=== PATIENT | female | born 1965 | race Caucasian/White ===

== ENCOUNTER → 2018-11-04 11:52 | Outpatient (CLI) | payer OTHER, MEDICAID, SELFPAY ==
--- NOTE | 2018-11-04 | DI.MG.S_ITS ---
BILATERAL DIGITAL SCREENING MAMMOGRAM 3D/2D WITH CAD: 11/04/2018 CLINICAL: Routine screening. Comparison is made to exam dated: 08/11/2007 [facility]. There are scattered fibroglandular elements in both breasts. Current study was also evaluated with a Computer Aided Detection (CAD) system. No significant masses, calcifications, or other findings are seen in either breast. There has been no significant interval change. IMPRESSION: NEGATIVE There is no mammographic evidence of malignancy. A 1 year screening mammogram is recommended. This exam was interpreted at Station ID: [id number]. NOTE: For mammograms, a report in lay terms will be sent to the patient. Approximately 15% of breast malignancies will not be visualized mammographically. In the management of a palpable breast mass, a negative mammogram must not discourage biopsy of a clinically suspicious lesion. Electronically Signed By: Marquita ma/thai:11/04/2018 13:43:37 letter sent: Normal Exam ACR BI-RADS Category 1: Negative 3341F
== END ==
PROVIDERS: Family Provider Family Medicine; PCP Family Medicine; Visit Provider Family Medicine
DX: Z13.21 Encounter for screening for nutritional disorder (principal)
CPT/HCPCS: 77063; 77067

== ENCOUNTER 2020-02-29 10:29 | Emergency (ER) | payer OTHER, MEDICAID, SELFPAY ==
[2020-02-29 10:30] VITALS: BP 124/74; PULSE 117; RESP 14; TEMP 37.1; O2SAT 99; BMI 25.7
--- NOTE | 2020-02-29 10:35 | ED_ITS ---
HPI - Headache General Chief Complaint: Headache Stated Complaint: 8 day migrane Time Seen by Provider: 02/29/20 10:34 Source: patient Mode of arrival: Ambulatory Limitations: no limitations History of Present Illness HPI Narrative: This is a 55-year-old female comes to the emergency department with complaint of a days of migraine. Patient states that she has chronic migraines for the past 27 years. She does have a neurologist in [place], she states she cannot recall her name at this time but follows with her regularly. She has been on multiple medications. She currently takes his Abilify, sertraline, an amphetamine, Valium and uses a fentanyl patch for her anxiety, depression, narcolepsy and chronic migraines. Patient states that her migraine is it is typical intensity and pattern other than an extended length. She typically does not have migraines last for 8 days. She did go to the clinic on [facility] where she lives and received Toradol 2 days prior and Solu-Medrol yesterday without improvement. She has tried Imitrex at home, THC and OTC pain meds without improvement. She states that she will often received Demerol through the clinic which is typically helpful but they were out. Patient denies any fevers, no vision changes, no difficulty with ambulation, no new numbness, tingling or weakness, no syncope. She has had nausea, photophobia and is sensitive to sound. She had some vomiting yesterday but none today. She denies any other GI or urinary symptoms. She has tried multiple medications in the past including daily anti migraine medications but these were stopped secondary to side effects and she had benefit from Botox but this was stopped secondary to insurance coverage. Patient was following with pain management until April. Related Data Home Medications Medication Instructions Recorded Confirmed amphetamines 40 mg PO DAILY 11/04/18 11/04/18 aripiprazole 20 mg tablet 20 mg PO DAILY 11/04/18 11/04/18 zrlbtfn-beshwxomfrxdp-ovpmjamu 250 1 tab PO DAILY PRN tab 11/04/18 11/04/18 mg-250 mg-65 mg tablet cetirizine PO DAILY PRN 11/04/18 11/04/18 cholecalciferol (vitamin D3) PO DAILY 11/04/18 11/04/18 diazepam 2 each PO DAILY 11/04/18 11/04/18 fentanyl 50 mcg/hr transdermal 1 patch TRANSDERMAL Q72H 11/04/18 11/04/18 patch gabapentin 3 each PO BEDTIME 11/04/18 11/04/18 hydromorphone 8 mg tablet 8 mg PO DAILY PRN tab 11/04/18 11/04/18 magnesium PO DAILY 11/04/18 11/04/18 propranolol 20 mg tablet 20 mg PO BID 11/04/18 11/04/18 sertraline 100 mg tablet 100 mg PO DAILY 11/04/18 11/04/18 Previous Rx's Medication Instructions Recorded galcanezumab-gnlm 120 mg/mL 120 mg SUBCUT QMONTH #1 ml 01/09/19 subcutaneous pen injector galcanezumab-gnlm 120 mg/mL 240 mg SUBCUT ONCE #2 ml 01/09/19 subcutaneous pen injector sumatriptan succinate 100 mg tablet See Rx Instructions PO .COMPLEX 03/23/19 #14 tab galcanezumab-gnlm 120 mg/mL 120 mg SUBCUT QMONTH #1 ml 05/11/19 subcutaneous pen injector sumatriptan succinate 100 mg tablet See Rx Instructions PO .COMPLEX 05/11/19 #10 tab Allergies Allergy/AdvReac Type Severity Reaction Status Date / Time Sulfa (Sulfonamide Allergy Intermediate HIVES Verified 02/29/20 10:36 Antibiotics) [SULFA (SULFONAMIDE ANTIBIOTICS)] erythromycin base Allergy Mild HIVES Verified 02/29/20 10:36 [ERYTHROMYCIN BASE] fentanyl [FENTANYL] Allergy Mild HIVES Verified 02/29/20 10:36 Review of Systems Review of Systems ROS Unobtainable: All systems reviewed & are unremarkable except as noted in HPI and below Patient History Social History (Updated 02/29/20 @ 11:12 by Tavia Marrero DO) Smoking Status: Former smoker alcohol intake: current substance use type: marijuana Smoking Status: Former smoker Exam Narrative Exam Narrative: GEN: well nourished, well appearing female, alert and oriented x 3, patient appears to be in mild distress. HEENT: Atraumatic, pupils are equal round reactive to light, mild photophobia, no nystagmus, extraocular movements are intact, nares are clear, TMs are clear with no fluid, there is no conjunctival pallor. Throat is clear without any exudates, erythema, tonsillar enlargement or uvular deviation, no facial droop HEART: Regular rate and rhythm without murmur, clicks, rubs. LUNGS:Lungs clear to auscultation, no wheezes, rales, crackles, chest moves symmetrically ABD:bowel sounds normal, soft, non-tender, no guarding, rebound, rigidity, no masses noted, no hepatosplenomegaly MSCL: Non-tender, no muscle atrophy, muscles strength 5/5 upper and lower extremities, full range of motion, normal gait NEURO:CN 2-12 intact, sensation normal, reflexes 2/4 lower extremities. Hjqgos-ehhg-sxwpvk and heel-gallego normal bilaterally SKIN: No rashes, erythema or skin changes noted. Initial Vital Signs Initial Vital Signs: Vital Signs Temperature 98.8 F 02/29/20 10:30 Pulse Rate 117 H 02/29/20 10:30 Respiratory Rate 14 02/29/20 10:30 Blood Pressure 124/74 02/29/20 10:30 Pulse Oximetry 99 02/29/20 10:30 Scores GCS [place] coma scale eye opening: Spontaneous [place] coma scale verbal response: Orientated [place] coma scale motor response: Obey commands [place] coma scale total score: 15 Course Orders Ordered: Discontinued Medications Diphenhydramine HCl (Diphenhydramine 50 Mg/Ml Vial) 25 mg IV NOW ONE Stop: 02/29/20 10:53 Last Admin: 02/29/20 11:16 Dose: 25 mg Documented by: ESTUARDO Hydromorphone HCl (Hydromorphone 1 Mg Inj) 1 mg IV NOW ONE Stop: 02/29/20 12:01 Last Admin: 02/29/20 12:07 Dose: 1 mg Documented by: ESTUARDO Hydromorphone HCl (Hydromorphone 4 Mg Tablet) 4 mg PO NOW ONE Stop: 02/29/20 14:16 Last Admin: 02/29/20 14:36 Dose: 4 mg Documented by: KBROTEM Sodium Chloride (Normal Saline 0.9%) 1,000 mls @ 1,000 mls/hr IV BOLUS ONE Stop: 02/29/20 11:51 Last Infusion: 02/29/20 12:20 Dose: 0 mls/hr Documented by: Admin: 02/29/20 11:15 Dose: 1,000 mls/hr Documented by: ESTUARDO Ketorolac Tromethamine (Ketorolac 60 Mg/2 Ml Vial) 15 mg IV NOW ONE Stop: 02/29/20 10:53 Last Admin: 02/29/20 11:16 Dose: 15 mg Documented by: ESTUARDO Metoclopramide HCl (Metoclopramide 10 Mg/2 Ml Inj) 10 mg IV NOW ONE Stop: 02/29/20 10:53 Last Admin: 02/29/20 11:16 Dose: 10 mg Documented by: ESTUARDO Reevaluation(s) Reevaluation #1: Patient states no improvement of symptoms with IV fluids, toradol, reglan and benadryl. Time: 11:54 Reevaluation #2: Recheck patient states headache is now 6/10 from 10/22 for nursing. Patient has fentanyl patch on. Filled diluadid tablets #4 on 02/25. Patient states she had resolution of symptoms but now returning. She has taken oral diluadid regularly. Will give 4mg po here and she can continue home medications. Encouraged to reach out to her neurologist. Her next appointment is in May. Time: 14:17 Vital Signs Vital signs: Vital Signs - 8 hr 02/29/20 13:15 02/29/20 14:44 Pulse Rate 95 H 100 H Respiratory Rate 16 Blood Pressure 109/59 L 101/65 Pulse Oximetry 95 97 MDM - Headache MDM Narrative Medical decision making narrative: Patient has typical migraine pattern in terms of intensity, location and symptoms the only change is extended course. She has had appropriate workup in the past, follows regularly with Neurology and has attempted outpatient treatment nlzw-wyx-owkiuwt with her home medications [place] Patient had moderate improvement in pain but is now sitting up and on phone and appears much more comfortable than prior. Patient comfortable to return home. Discharge Plan Departure Patient Disposition: Home Clinical Impression: Migraine Instructions: DI for Migraine Activity Restrictions/Additional Instructions: Follow up with your neurologist if you continue to have prolonged symptoms. They may have some additional options for manager long term care medications. Continue your home medications as prescribed. Return for fevers, passing out, new chest pain or shortness of breath, persistent vomiting, new weakness numbness or difficulty using your extremities, ambulating, sudden severe or new changes that are atypical of your migraines or other new or concerning symptoms. Prescriptions: No Action sumatriptan succinate 100 mg tablet See Rx Instructions PO .COMPLEX Qty: 14 RF: 2 propranolol 20 mg tablet 20 mg PO BID RF: 0 aripiprazole [Abilify] 20 mg tablet 20 mg PO DAILY RF: 0 sertraline 100 mg tablet 100 mg PO DAILY RF: 0 amphetamines 40 mg PO DAILY RF: 0 diazepam 2 each PO DAILY RF: 0 gabapentin 3 each PO BEDTIME RF: 0 fentanyl 50 mcg/hr patch 72 hour 1 patch transdermal Q72H RF: 0 hydromorphone [Dilaudid] 8 mg tablet 8 mg PO DAILY PRNRF: 0 magnesium PO DAILY RF: 0 cholecalciferol (vitamin D3) PO DAILY RF: 0 cetirizine PO DAILY PRNRF: 0 Excedrin Migraine 250-250-65 mg tablet 1 tab PO DAILY PRNRF: 0 Emgality Pen 120 mg/mL pen injector 240 mg SUBCUT ONCE Qty: 2 RF: 0 Emgality Pen 120 mg/mL pen injector 120 mg SUBCUT QMONTH Qty: 1 RF: 12 sumatriptan succinate 100 mg tablet See Rx Instructions PO .COMPLEX Qty: 10 RF: 5 Emgality Pen 120 mg/mL pen injector 120 mg SUBCUT QMONTH Qty: 1 RF: 5 Referrals: Domingo Conley MD [Primary Care Provider] -
[2020-02-29] MEDS: SODIUM CHLORIDE 0.9% 1,000 ML 1000 ML IV (11:15)
[2020-02-29] MEDS: diphenhydrAMINE 50 MG/ML VIAL 25 MG IV (11:16)
[2020-02-29] MEDS: KETOROLAC 60 MG/2 ML VIAL 15 MG IV (11:16)
[2020-02-29] MEDS: METOCLOPRAMIDE 10 MG/2 ML INJ IV (11:16)
[2020-02-29] MEDS: HYDROMORPHONE 1 MG INJ IV (12:07)
[2020-02-29 13:15] VITALS: BP 109/59; PULSE 95; RESP 16; O2SAT 95
[2020-02-29] MEDS: HYDROMORPHONE 4 MG TABLET PO (14:36)
[2020-02-29 14:44] VITALS: BP 101/65; PULSE 100; O2SAT 97
== END 2020-02-29 14:45 | disposition home or self-care (01) ==
PROVIDERS: Emergency Provider Emergency Medicine; Family Provider Family Medicine; PCP Family Medicine
DX: G43.909 Migraine, unspecified, not intractable, without status migrainosus (principal)
CPT/HCPCS: 96361; 96374; 96375; 99281; 99284; J1170; J1200; J1885; J2765

== ENCOUNTER → 2020-08-27 11:07 | Outpatient (CLI) | payer OTHER, MEDICAID, SELFPAY ==
--- NOTE | 2020-08-27 11:09 | DI.MRI.S_ITS ---
PROCEDURE: MR LUMBAR SPINE WO CON INDICATIONS: Non-resolving lumbago s/p PT and x-rays. TECHNIQUE: Noncontrast sagittal T1 spin echo and T2 fast echo, sagittal STIR, axial T1 and T2 fast spin echo through the lumbar spine. In cases with scoliosis, additional coronal T2 fast spin echo may be performed. COMPARISON: [facility], MR, L-SPINE WITHOUT CONTRAST, 06/12/2013, 10:53. [facility] ([facility]), CR, XR LUMBAR SPINE 2-3V, 07/22/2020, 15:00. FINDINGS: Image quality: Excellent. Alignment and Curvature: Mild dextroconvex scoliotic curvature is seen. Bone Marrow: Marrow is of normal overall signal. No acute vertebral body compression fractures. Spinal Cord: Conus medullaris terminates at the L1 level. Visualized cord demonstrates normal signal and size. Paraspinous Soft Tissues: No paravertebral masses. T12-L1: Normal appearance. L1-L2: Normal appearance. L2-L3: The disc height and disk signal are well-preserved. Mild disc bulge is seen, which is eccentric to the right. Mild to moderate facet hypertrophy is seen. No significant neural foraminal narrowing is seen. Mild central canal narrowing is seen. These imaging findings have progressed compared to the prior study. L3-L4: Chir-bk-gduryiyl loss of disc height and disc signal can be seen at this level. Moderate disc bulge is seen, which is eccentric to the right. Mild to moderate facet hypertrophy is seen. There is mild left-sided and moderate right-sided neural foraminal narrowing seen. Moderate central canal narrowing is seen. These imaging findings have progressed compared to the prior study. L4-L5: Gwyv-mq-hbaxjocm loss of disc height and disc signal can be seen. Moderate disc bulge is seen, with a central disc protrusion. At least moderate facet hypertrophy is seen. Moderate bilateral neural foraminal narrowing is seen. Moderate central canal narrowing is seen. These imaging findings have progressed compared to 2014. L5-S1: The disc height and disc signal are relatively well preserved. Moderate generalized disc bulge is seen. At least moderate facet hypertrophy is seen. There is at least moderate bilateral neural foraminal narrowing seen, left worse than right. There is a mild degree of compression seen upon the exiting L5 nerve roots, left worse than right. Mild central canal narrowing is seen. These imaging findings have progressed compared to the prior study. IMPRESSION: Multiple levels of lumbar spine degenerative change are seen, which have progressed compared to 2014. Dictated by: Marques Ramos M.D. on 08/27/2020 at 11:43 Approved by: Marques Ramos M.D. on 08/27/2020 at 11:47
== END ==
PROVIDERS: Family Provider Family Medicine; PCP Family Medicine; Referring Provider Family Medicine; Visit Provider Family Medicine
DX: M54.41 Lumbago with sciatica, right side (principal); M47.816 Spondylosis without myelopathy or radiculopathy, lumbar region; M41.86 Other forms of scoliosis, lumbar region; G89.4 Chronic pain syndrome
CPT/HCPCS: 72148

== ENCOUNTER → 2021-01-03 09:21 | Outpatient (CLI) | payer OTHER, MEDICAID, SELFPAY ==
[2021-01-03 18:52] LABS: Alanine Aminotransferase 20 IU/L (<35); Albumin 4.5 g/dL (3.5-5.0); Alkaline Phosphatase 96 U/L (38-126); Aspartate Aminotransferase 23 IU/L (14-36); BUN Creatinine Ratio 14.7 (6-22); Bilirubin Total 0.7 mg/dL (0.2-1.3); Blood Urea Nitrogen 11 mg/dL (7-17); Calcium 9.6 mg/dL (8.4-10.2); Carbon Dioxide 29 mmol/L (22-32); Chloride 104 mmol/L (98-107); Cholesterol 235 mg/dL (140-199); Estimated Glomerular Filt Rate > 60.0 mL/min (>60); Globulin 2.3 g/dL (1.7-4.1); Glucose 97 mg/dL (70-100); HDL Cholesterol 56 mg/dL (40-60); HEMOLYSIS < 15 (0-50); LDL Cholesterol Calculated 163 mg/dL (<100); Potassium 4.1 mmol/L (3.4-5.1); Sodium 142 mmol/L (137-145); Total Protein 6.8 g/dL (6.3-8.2); Triglycerides 81 mg/dL (35-150)
== END ==
PROVIDERS: Family Provider Family Medicine; PCP Family Medicine; Visit Provider Family Medicine
DX: E78.5 Hyperlipidemia, unspecified (principal)
CPT/HCPCS: 80053; 80061

== ENCOUNTER → 2021-02-05 11:34 | Outpatient (CLI) | payer OTHER, MEDICAID, SELFPAY ==
--- NOTE | 2021-02-05 11:36 | DI.MG.S_ITS ---
BILATERAL DIGITAL SCREENING MAMMOGRAM 3D/2D WITH CAD: 02/05/2021 CLINICAL: Routine screening. Comparison is made to exams dated: 11/04/2018 mammogram and 08/11/2007 mammogram - [facility]. There are scattered fibroglandular elements in both breasts. Current study was also evaluated with a Computer Aided Detection (CAD) system. No significant masses, calcifications, or other findings are seen in either breast. There has been no significant interval change. IMPRESSION: NEGATIVE There is no mammographic evidence of malignancy. A 1 year screening mammogram is recommended. This exam was interpreted at Station ID: [id number]. NOTE: For mammograms, a report in lay terms will be sent to the patient. Approximately 15% of breast malignancies will not be visualized mammographically. In the management of a palpable breast mass, a negative mammogram must not discourage biopsy of a clinically suspicious lesion. Electronically Signed By: Hiro Zapata M.D., jr/thai:02/05/2021 13:06:41 letter sent: Normal Exam ACR BI-RADS Category 1: Negative 3341F
== END ==
PROVIDERS: Family Provider Family Medicine; PCP Family Medicine; Referring Provider Family Medicine; Visit Provider Family Medicine
DX: Z12.31 Encounter for screening mammogram for malignant neoplasm of breast (principal)
CPT/HCPCS: 77063; 77067

== ENCOUNTER → 2021-05-22 08:01 | Outpatient (CLI) | payer OTHER, MEDICAID, SELFPAY ==
[2021-05-22 19:01] LABS: Add Manual Diff / Slide Review NO; Basophils Absolute Auto 0 /uL (0-100); Basophils Percent Auto 0.7 % (0-2); Eosinophils Absolute Auto 200 /uL (0-450); Hematocrit 41.9 % (36-46); Hemoglobin 14.1 g/dL (12.0-16.0); Lymphocytes Absolute Auto 3000 /uL (1100-4500); Lymphocytes Percent Auto 48.6 % (25-40); Mean Corpuscular HGB Conc 33.6 % (30-36); Mean Corpuscular Hemoglobin 31.3 PG (26-34); Mean Corpuscular Volume 93.3 fL (80-100); Monocytes Absolute Auto 300 /uL (0-900); Monocytes Percent Auto 4.4 % (3-14); Neutrophils Absolute Auto 2700 /uL (1500-7000); Neutrophils Percent Auto 43.3 % (50-75); Platelet Count 171 X10^3/uL (150-400); Red Blood Cell Count 4.49 X10^6/uL (4.0-5.2); Red Cell Distribution Width 13.3 % (11.6-14.8); White Blood Cell Count 6.2 X10^3/uL (4.5-11.0)
[2021-05-22 19:07] LABS: Alanine Aminotransferase 29 IU/L (<35); Albumin Globulin Ratio 1.8 (1.0-2.8); Alkaline Phosphatase 85 U/L (38-126); Aspartate Aminotransferase 29 IU/L (14-36); Bilirubin Total 0.7 mg/dL (0.2-1.3); Blood Urea Nitrogen 15 mg/dL (7-17); Calcium 9.2 mg/dL (8.4-10.2); Carbon Dioxide 34 mmol/L (22-32); Chloride 104 mmol/L (98-107); Cholesterol 138 mg/dL (140-199); Estimated Glomerular Filt Rate > 60.0 mL/min (>60); Globulin 2.2 g/dL (1.7-4.1); Glucose 93 mg/dL (70-100); HDL Cholesterol 44 mg/dL (40-60); HEMOLYSIS < 15 (0-50); LDL Cholesterol Calculated 74 mg/dL (<100); Potassium 4.3 mmol/L (3.4-5.1); Sodium 140 mmol/L (137-145); Total Protein 6.2 g/dL (6.3-8.2); Triglycerides 101 mg/dL (35-150)
== END ==
PROVIDERS: Family Provider Family Medicine; PCP Family Medicine; Visit Provider Family Medicine
DX: Z00.00 Encounter for general adult medical examination without abnormal findings (principal); F31.32 Bipolar disorder, current episode depressed, moderate; E78.2 Mixed hyperlipidemia
CPT/HCPCS: 80053; 80061; 85025

== ENCOUNTER → 2021-07-01 08:18 | Outpatient (CLI) | payer OTHER, MEDICAID, SELFPAY ==
[2021-07-01 19:49] LABS: COVID19 - ORCAS (NP or Nasal) Negative (Negative)
== END ==
PROVIDERS: Family Provider Family Medicine; PCP Family Medicine; Visit Provider Physician Assistant
DX: Z01.812 Encounter for preprocedural laboratory examination (principal); Z20.822 Contact with and (suspected) exposure to COVID-19
CPT/HCPCS: C9803; U0003

== ENCOUNTER 2021-07-03 10:40 | Outpatient (CLI) | payer OTHER, MEDICAID, SELFPAY ==
[2021-07-03] VITALS (9 sets, daily range): BP systolic 118–129; BP diastolic 68–82; PULSE 90–106; RESP 10–20; TEMP 37; O2SAT 94–99
--- NOTE | 2021-07-03 10:42 | DI.RAD.S_ITS ---
PROCEDURE: PAIN L/SI FACET INJ/BLK 1STL INDICATIONS: SPONDYLOSIS COMPARISON: [facility], MR, MR LUMBAR SPINE WO CON, 08/27/2020, 11:18. FINDINGS: Fluoroscopic spot filming was performed to verify placement of spinal needles on the right at the L4, L5, and S1 levels, as labeled on the films. Appropriate location of the needle tips was confirmed by injection of iodinated contrast. IMPRESSION: Intraprocedural examination demonstrating appropriate positions of the needles. Dictated by: Marques Ramos M.D. on 07/03/2021 at 12:00 Approved by: Marques Ramos M.D. on 07/03/2021 at 12:01
[2021-07-03] MEDS: ONDANSETRON 4 MG/2 ML INJ IV (11:21)
[2021-07-03] MEDS: MIDAZOLAM 2 MG/2 ML VIAL IV (11:54)
[2021-07-03] MEDS: fentaNYL 100 MCG/2 ML INJ (12:00)
[2021-07-03] MEDS: IOPAMIDOL 15 ML VIAL 3 ML INJ (12:03)
[2021-07-03] MEDS: BUPIVACAINE 0.5% (PF) VIAL 5 ML INJ (12:03)
[2021-07-03] MEDS: LIDOCAINE 1% 20 ML 5 ML INJ (12:04)
--- NOTE | 2021-07-03 12:10 | PM.PROC.IR.1 ---
Date/Time/Diagnoses Date of procedure: 07/03/21 Time of procedure: 12:10 Pre-procedure diagnosis: 1. FACET ARTHROPATHY Post-procedure diagnosis: same Procedure Notes Procedure: 1. Right L4, L5 and S1 MB BLOCKS LA Indications: Agustina is referred by Dr. Aguila for treatment of Right Axial LBP. Physician: Sky Carney Total Fluoroscopy time (seconds): 6 Total sedation minutes: 10 Complications: none Procedure in detail & Post-procedure care: DESCRIPTION OF PROCEDURE Fluoroscopically guided, contrast-controlled right L4, L5 and S1 medial branch blocks with 0.5cc of 0.5% Marcaine. Following review of allergy and review of potential side effects and complications, including, but not necessarily limited to, infection, allergic reaction, local tissue breakdown, nerve injury, paralysis, stroke and possible , the patient indicated that the patient understood and agreed to proceed. An informed consent document was signed by the patient, witnessed by a nurse, and placed in the patient's chart. After review of previous anaesthesic history and IV conscious sedation the patient was deemed safe to proceed with today?s procedure with IV conscious sedation as ASA class II designation. Safety time-out was performed to confirm patient ID, procedure to be performed and site of procedure. IV sedation was accomplished with a combination of 2mg of Versed and 100mcg of Fentanyl was administered by the RN after DO order, titrated to patient comfort during the course of the procedure while the patient remained responsive to all verbal commands In the prone position, following sterile prep and drape of the lumbar region, the right L4, L5 and S1 anatomical location of the medial branch of the dorsal ramus was identified fluoroscopically. Subsequently an anesthetic skin wheal using 1% lidocaine solution was initiated at each of the anatomical spots. Subsequently then a 22-gauge 3.5-inch spinal needle was atraumatically introduced and advanced under fluoroscopic guidance at each of the corresponding sites at the right L4, L5 and S1 MB. After negative aspiration, 0.2 cc of Isovue 200 was injected, confirming placement without vascular or intrathecal uptake. Subsequently then 0.5 cc of 0.5% Marcaine solution was injected at each of the corresponding sites at the right L4, L5 and S1 medial branch locations. The patient tolerated the procedure well without signs or symptoms of complications. The procedure tolerated the procedure well without signs or symptoms of complications prior to transfer to the recovery area continued monitoring without incident. Post-procedure, the patient was monitored initiating provocative activities to measure the amount of relief from block of the facetogenic pain. The patient reported a VAS of 7 prior to the procedure and a post-procedure VAS of 1. It has been a pleasure to assist in the diagnostic and therapeutic care of your patient. POST OP INSTRUCTIONS The patient was provided with a Pain Log to complete over the next several hours and subsequent days prior to the patient's follow up with the ordering physician. If the patient has k 9 police officer relief to the solution applied, then they may be a candidate for medial branch rhizotomy. The patient is aware, was provided, once again, with a Pain Log and will follow up with the referring physician for review and clinical correlation.
== END 2021-07-03 12:32 | disposition home or self-care (01) ==
PROVIDERS: Family Provider Family Medicine; PCP Family Medicine; Referring Provider Physical Medicine & Rehabilitation; Visit Provider Physical Medicine & Rehabilitation
DX: M47.816 Spondylosis without myelopathy or radiculopathy, lumbar region (principal); M47.817 Spondylosis without myelopathy or radiculopathy, lumbosacral region
CPT/HCPCS: 64493; 64494; 99152; J2250; J2405; J3010

== ENCOUNTER → 2021-10-27 10:45 | Outpatient (CLI) | payer OTHER, MEDICAID, SELFPAY ==
[2021-10-27 21:00] LABS: Add Manual Diff / Slide Review NO; Basophils Absolute Auto 0 /uL (0-100); Basophils Percent Auto 0.7 % (0-2); Eosinophils Absolute Auto 100 /uL (0-450); Eosinophils Percent Auto 2.2 % (2-4); Hematocrit 44.2 % (36-46); Hemoglobin 14.6 g/dL (12.0-16.0); Lymphocytes Absolute Auto 2300 /uL (1100-4500); Mean Corpuscular HGB Conc 33.1 % (30-36); Mean Corpuscular Volume 93.7 fL (80-100); Monocytes Absolute Auto 300 /uL (0-900); Monocytes Percent Auto 4.8 % (3-14); Neutrophils Absolute Auto 3700 /uL (1500-7000); Neutrophils Percent Auto 57.3 % (50-75); Platelet Count 179 X10^3/uL (150-400); Red Blood Cell Count 4.72 X10^6/uL (4.0-5.2); Red Cell Distribution Width 13.3 % (11.6-14.8); White Blood Cell Count 6.4 X10^3/uL (4.5-11.0)
[2021-10-27 21:18] LABS: Alanine Aminotransferase 39 IU/L (<35); Albumin 4.3 g/dL (3.5-5.0); Albumin Globulin Ratio 1.9 (1.0-2.8); Alkaline Phosphatase 113 U/L (38-126); Aspartate Aminotransferase 27 IU/L (14-36); BUN Creatinine Ratio 18.2 (6-22); Bilirubin Total 0.7 mg/dL (0.2-1.3); Blood Urea Nitrogen 12 mg/dL (7-17); Calcium 8.9 mg/dL (8.4-10.2); Carbon Dioxide 25 mmol/L (22-32); Chloride 106 mmol/L (98-107); Cholesterol 158 mg/dL (140-199); Estimated Glomerular Filt Rate > 60 mL/min (>60); Globulin 2.3 g/dL (1.7-4.1); Glucose 98 mg/dL (70-100); HDL Cholesterol 54 mg/dL (40-60); HEMOLYSIS 15 (0-50); LDL Cholesterol Calculated 88 mg/dL (<100); Potassium 4.3 mmol/L (3.4-5.1); Sodium 141 mmol/L (137-145); Total Protein 6.6 g/dL (6.3-8.2); Triglycerides 78 mg/dL (35-150)
== END ==
PROVIDERS: Family Provider Family Medicine; PCP Family Medicine; Visit Provider Family Medicine
DX: R51.9 Headache, unspecified (principal); E78.2 Mixed hyperlipidemia
CPT/HCPCS: 80053; 80061; 85025

== ENCOUNTER → 2021-11-04 09:23 | Outpatient (CLI) | payer OTHER, MEDICAID, SELFPAY ==
[2021-11-04 20:16] LABS: TSH w/ Reflex to FT4 1.05 uIU/mL (0.47-4.68)
== END ==
PROVIDERS: Family Provider Family Medicine; PCP Family Medicine; Visit Provider Family Medicine
DX: F31.9 Bipolar disorder, unspecified (principal); G43.709 Chronic migraine without aura, not intractable, without status migrainosus; R53.83 Other fatigue
CPT/HCPCS: 84443

== ENCOUNTER → 2021-11-10 09:38 | Outpatient (CLI) | payer OTHER, MEDICAID, SELFPAY ==
[2021-11-10 20:39] LABS: COVID19 - ORCAS (NP or Nasal) Negative (Negative)
== END ==
PROVIDERS: Family Provider Family Medicine; PCP Family Medicine; Visit Provider Family Medicine
DX: Z20.822 Contact with and (suspected) exposure to COVID-19 (principal); Z01.812 Encounter for preprocedural laboratory examination
CPT/HCPCS: C9803; U0003

== ENCOUNTER 2021-11-11 09:22 | Outpatient (CLI) | payer OTHER, MEDICAID, SELFPAY ==
[2021-11-11] VITALS (11 sets, daily range): BP systolic 125–148; BP diastolic 65–86; PULSE 93–103; RESP 12–20; TEMP 36.2; O2SAT 96–99
--- NOTE | 2021-11-11 09:25 | DI.RAD.S_ITS ---
PROCEDURE: PAIN L/S FACET INJ/BLK 1ST GRACE COMPARISON: [facility], , PAIN L/SI FACET INJ/BLK 1STL, 07/03/2021, 11:59. INDICATIONS: SPONDYLOSIS FINDINGS: Fluoroscopic spot filming was performed to verify placement of spinal needles on both sides at the L4, L5, and S1 levels, as labeled on the films. Appropriate location of the needle tips was confirmed by injection of iodinated contrast. IMPRESSION: Intraprocedural examination demonstrating appropriate positions of the needles. Dictated by: Marques Ramos M.D. on 11/11/2021 at 12:20 Approved by: Marques Ramos M.D. on 11/11/2021 at 12:21
[2021-11-11] MEDS: LIDOCAINE 1% (PF) 5 ML INJ (10:15)
[2021-11-11] MEDS: IOPAMIDOL 15 ML VIAL 3 ML INJ (10:16)
[2021-11-11] MEDS: BUPIVACAINE 0.5% (PF) VIAL 5 ML SUBCUT (10:16)
[2021-11-11] MEDS: MIDAZOLAM 5 MG/5 ML VIAL IV (10:21)
--- NOTE | 2021-11-11 10:30 | P.PCN_ITS ---
Date/Time/Diagnoses Date of procedure: 11/11/21 Time of procedure: 10:30 Pre-procedure diagnosis: 1. FACET ARTHROPATHY Post-procedure diagnosis: same Procedure Notes Procedure: 1. BILATERAL- L4, L5 and S1 DIAGNOSTIC MB BLOCKS with SA Anesthetic Indications: Agustina is referred by Dr. Aguila for treatment of Bilateral Axial LBP. Physician: Sky Carney Total Fluoroscopy time (seconds): 12 Total sedation minutes: 14 Complications: none Procedure in detail & Post-procedure care: DESCRIPTION OF PROCEDURE Fluoroscopically guided, contrast-controlled bilateral L4, L5 and S1 medial branch blocks with 0.5cc of 2% Lidocaine. Following review of allergy and review of potential side effects and complications, including, but not necessarily limited to, infection, allergic reaction, local tissue breakdown, nerve injury, paralysis, stroke and possible , the patient indicated that the patient understood and agreed to proceed. An informed consent document was signed by the patient, witnessed by a nurse, and placed in the patient's chart. After review of previous anaesthesic history and IV conscious sedation the patient was deemed safe to proceed with today's procedure with IV conscious chris tion as ASA class II designation. Safety time-out was performed to confirm patient ID, procedure to be performed and site of procedure. IV sedation was accomplished with a combination of 5mg of Versed was administered by the RN after DO order, titrated to patient comfort during the course of the procedure while the patient remained responsive to all verbal commands In the prone position, following sterile prep and drape of the lumbar region, the right L4, L5 and S1 anatomical location of the medial branch of the dorsal ramus was identified fluoroscopically. Subsequently an anesthetic skin wheal using 1% lidocaine solution was initiated at each of the anatomical spots. Subsequently then a 22-gauge 3.5-inch spinal needle was atraumatically introduced and advanced under fluoroscopic guidance at each of the corresponding sites at the right L4, L5 and S1 MB. After negative aspiration, 0.2cc of Isovue 200 was injected, confirming placement without vascular or intrathecal uptake. Subsequently then 0.5cc of 2% Lidocaine solution was injected at each of the corresponding sites at the right L4, L5 and S1 medial branch locations. The identical procedure was replicated on the left. The patient tolerated the procedure well without signs or symptoms of complications prior to transfer to the recovery area continued monitoring without incident. Post-procedure, the patient was monitored initiating provocative activities to measure the amount of relief from block of the facetogenic pain. The patient reported a VAS of 7 prior to the procedure and a post-procedure VAS of 1. It has been a pleasure to assist in the diagnostic and therapeutic care of your patient. POST OP INSTRUCTIONS The patient was provided with a Pain Log to complete over the next several hours and subsequent days prior to the patient's follow up with the ordering physician. If the patient has plaster whittler relief to the solution applied, then they may be a candidate for medial branch rhizotomy. The patient is aware, was provided, once again, with a Pain Log and will follow up with the referring physician for review and clinical correlation
== END 2021-11-11 10:55 | disposition home or self-care (01) ==
LOC: RAD 09:24
PROVIDERS: Family Provider Family Medicine; PCP Family Medicine; Referring Provider Physical Medicine & Rehabilitation; Visit Provider Physical Medicine & Rehabilitation
DX: M47.816 Spondylosis without myelopathy or radiculopathy, lumbar region (principal); M47.817 Spondylosis without myelopathy or radiculopathy, lumbosacral region
CPT/HCPCS: 64493; 64494; 99152; J2250

== ENCOUNTER → 2021-12-30 10:01 | Outpatient (CLI) | payer OTHER, MEDICAID, SELFPAY ==
[2021-12-30 20:25] LABS: Add Manual Diff / Slide Review NO; Basophils Absolute Auto 0 /uL (0-100); Basophils Percent Auto 0.5 % (0-2); Eosinophils Absolute Auto 200 /uL (0-450); Hematocrit 39.7 % (36-46); Hemoglobin 13.3 g/dL (12.0-16.0); Lymphocytes Absolute Auto 2500 /uL (1100-4500); Lymphocytes Percent Auto 43.3 % (25-40); Mean Corpuscular HGB Conc 33.5 % (30-36); Mean Corpuscular Hemoglobin 31.2 PG (26-34); Mean Corpuscular Volume 93.1 fL (80-100); Monocytes Absolute Auto 300 /uL (0-900); Monocytes Percent Auto 4.5 % (3-14); Neutrophils Absolute Auto 2800 /uL (1500-7000); Neutrophils Percent Auto 48.7 % (50-75); Platelet Count 160 X10^3/uL (150-400); Red Blood Cell Count 4.26 X10^6/uL (4.0-5.2); Red Cell Distribution Width 13.1 % (11.6-14.8); White Blood Cell Count 5.8 X10^3/uL (4.5-11.0)
[2021-12-30 20:34] LABS: Alanine Aminotransferase 25 IU/L (<35); Albumin Globulin Ratio 1.8 (1.0-2.8); Alkaline Phosphatase 105 U/L (38-126); Aspartate Aminotransferase 23 IU/L (14-36); Bilirubin Total 0.3 mg/dL (0.2-1.3); Bilirubin Unconjugated 0.2 mg/dL (0.0-1.1); Globulin 2.2 g/dL (1.7-4.1); HEMOLYSIS < 15 (0-50); Total Protein 6.2 g/dL (6.3-8.2)
== END ==
PROVIDERS: Family Provider Family Medicine; PCP Family Medicine; Visit Provider Physician Assistant
DX: K21.00 Gastro-esophageal reflux disease with esophagitis, without bleeding (principal); R10.13 Epigastric pain; Z79.899 Other long term (current) drug therapy
CPT/HCPCS: 80076; 85025

== ENCOUNTER → 2022-01-01 15:39 | Outpatient (CLI) | payer OTHER, MEDICAID, SELFPAY ==
[2022-01-05 10:25] LABS: Fecal Immunochemical Test Negative (Negative)
== END ==
PROVIDERS: Family Provider Family Medicine; PCP Family Medicine; Visit Provider Physician Assistant
DX: K21.00 Gastro-esophageal reflux disease with esophagitis, without bleeding (principal); R10.13 Epigastric pain; Z79.899 Other long term (current) drug therapy
CPT/HCPCS: 82274

== ENCOUNTER 2022-01-29 09:26 | Outpatient (CLI) | payer OTHER, MEDICAID, SELFPAY ==
[2022-01-29] VITALS (13 sets, daily range): BP systolic 111–149; BP diastolic 58–78; PULSE 92–99; RESP 12–20; TEMP 36.2; O2SAT 95–100
--- NOTE | 2022-01-29 09:28 | DI.RAD.S_ITS ---
PROCEDURE: PAIN L/S MED/LAT N RFA BILAT INDICATIONS: SPONDYLOSIS COMPARISON: [facility], XA, PAIN L/S FACET INJ/BLK 1ST GRACE, 11/11/2021, 10:16. [facility], XA, PAIN L/SI FACET INJ/BLK 1STL, 07/03/2021, 11:59. FINDINGS: Fluoroscopic spot filming was performed to verify placement of spinal needles on both sides at the L4, L5, and S1 levels, as labeled on the films. IMPRESSION: Images during rhizotomy within normal limits. Dictated by: Marques Ramos M.D. on 01/29/2022 at 11:38 Approved by: Marques Ramos M.D. on 01/29/2022 at 11:45
[2022-01-29] MEDS: BUPIVACAINE 0.5% MDV 5 ML SUBCUT (11:03)
[2022-01-29] MEDS: LIDOCAINE 1% 20 ML 5 ML INJ (11:04)
[2022-01-29] MEDS: fentaNYL 100 MCG/2 ML INJ IV (11:13)
[2022-01-29] MEDS: MIDAZOLAM 5 MG/5 ML VIAL IV (11:13)
--- NOTE | 2022-01-29 11:37 | P.PCN_ITS ---
Date/Time/Diagnoses Date of procedure: 01/29/22 Time of procedure: 11:37 Pre-procedure diagnosis: 1. RECALCITRANT FACET ARTHROPATHY Post-procedure diagnosis: same Procedure Notes Procedure: 1. BILATERAL L4 AND L5 MEDIAL BRANCH RADIOFREQUENCY NEUROTOMY AND S1 DORSAL RAMUS BRANCH RADIOFREQUENCY NEUROTOMY Indications: Agustina is referred by Dr. Tobin for treatment of facet arthropathy. Physician: Sky Carney Total Fluoroscopy time (seconds): 22 Total sedation minutes: 37 Complications: none Procedure in detail & Post-procedure care: DESCRIPTION OF PROCEDURE Bilateral L4 and L5 medial branch radiofrequency neurotomy and bilateral S1 dorsal ramus radiofrequency neurotomy under fluoroscopy with conscious sedation. The patient is well known to this clinic having undergone previous facet injections with good but temporary relief. The patient has experienced appropriate, concordant relief with previous facet and median branch blocks but the patient's pain has been recalcitrant to further conservative measures. Therefore, based upon the patient's relief and persistent symptoms, the patient is considered an appropriate candidate for facet rhizotomy. All of the patient's questions regarding the risks versus benefits of the procedure, including, but not limited to, bleeding, infection, temporary as well as lasting nerve injury, paralysis, stroke, and , as well treatment alternatives were answered to satisfaction. After obtaining informed consent, denial of pertinent drug allergies, as well as being made aware of the potential risks of bleeding, infection, spinal cord trauma, paralysis, temporary and permanent nerve damage, seizure, stroke, and possible , the patient was brought to the fluoroscopy suite and positioned prone on the fluoroscopy table. The lumbar region was prepped with Betadine and covered with a fenestrated drape in the usual sterile fashion. Appropriate monitors applied including pulse oximeter, pulse, and blood pressure for regular monitoring throughout the procedure. After review of previous anaesthesic history and IV conscious sedation the patient was deemed safe to proceed with today's procedure with IV conscious sedation as ASA class II designation. Safety time-out was performed to confirm patient ID, procedure to be performed and site of procedure. IV sedation was accomplished with a combination of 5mg of Versed and 100mcg of Fentanyl administered by the RN after DO order, titrated to patient comfort during the course of the procedure while the patient remained responsive to all verbal commands. After local infiltration using 1% lidocaine, under fluoroscopic guidance, a 10- cm RF insulated needle with a 10-mm active tip was positioned parallel to the junction of the right sacral ala and the superior articulating process where the S1 dorsal ramus resides. Needle placement was confirmed with motor stimulation of .5v on the right which produced local stimulation without radicular component. The stimulation was then increased to 2v with, once again, only local multifidus stimulation without radicular component. The needle was then removed and the identical procedure was performed along the length of the right L5 medial branch with motor stimulation at .7v on the right. The identical procedure was once again performed along the length of the right L4 medial branch with motor stimulation of .5v on the right. The medial branches were then anesthetised with 0.5% Marcaine. This was then followed by a discreet performed at 80 degrees Celsius for 90 seconds each. The identical procedure was repeated on the left. The patient tolerated the procedure well without signs or symptoms of complications prior to transfer to the recovery area continued monitoring without incident. The patient was then transferred to the recovery area where they were observed for an appropriate period of time after the injection. The patient reported a VAS score of 9 prior to the procedure and a post-procedure VAS of 0. POST OP INSTRUCTIONS The patient was provided a Pain Log to continue to record the patient's response to the target-specific procedure prior to the patient's follow-up visit with the referring physician. Additionally, specific post-injection care instructions and a contact number to our office were provided if concerns arise regarding possible complications associated with the procedure are suspected.
== END 2022-01-29 12:02 | disposition home or self-care (01) ==
LOC: RAD 09:27
PROVIDERS: Family Provider Family Medicine; PCP Family Medicine; Referring Provider Physical Medicine & Rehabilitation; Visit Provider Physical Medicine & Rehabilitation
DX: M47.816 Spondylosis without myelopathy or radiculopathy, lumbar region (principal); M47.817 Spondylosis without myelopathy or radiculopathy, lumbosacral region
CPT/HCPCS: 64635; 64636; 99152; 99153; J2250; J3010

== ENCOUNTER 2022-06-02 15:32 | Outpatient (CLI) | payer OTHER, MEDICAID, SELFPAY ==
[2022-06-02] VITALS (8 sets, daily range): BP systolic 129–152; BP diastolic 72–89; PULSE 85–96; RESP 12–21; TEMP 36.2; O2SAT 98–100
--- NOTE | 2022-06-02 15:33 | DI.RAD.S_ITS ---
PROCEDURE: PAIN L INTERLAMINAR/CAUDAL INJ INDICATIONS: SPONDYLOSIS COMPARISON: None. FINDINGS: Fluoroscopic spot filming was performed to verify placement of spinal needles at the left L4-L5 interlaminar space level(s), as labeled on the films. Appropriate location(s) of the needle tip(s) was confirmed by injection of iodinated contrast. IMPRESSION: [place] needles left L4-L5 interlaminar space for translaminar epidural steroid injection. Dictated by: Emma Nick MD, PhD on 06/02/2022 at 16:49 Approved by: Emma Nick MD, PhD on 06/02/2022 at 16:50
[2022-06-02] MEDS: MIDAZOLAM 2 MG/2 ML VIAL IV (16:12)
[2022-06-02] MEDS: IOPAMIDOL 15 ML VIAL 3 ML INJ (16:17)
[2022-06-02] MEDS: BETAMETHASONE 30 MG/5 ML MDV 6 MG INJ (16:17)
[2022-06-02] MEDS: DEXAMETHASONE 10 MG/ML VIAL 20 MG INJ (16:17)
[2022-06-02] MEDS: BUPIVACAINE 0.25% (PF) VIAL 2 ML INJ (16:18)
--- NOTE | 2022-06-02 16:27 | P.PCN_ITS ---
Date/Time/Diagnoses Date of procedure: 06/02/22 Time of procedure: 16:27 Pre-procedure diagnosis: 1. HNP WITH RADICULAR FEATURES, 2. MULTILEVEL CENTRAL STENOSIS, Post-procedure diagnosis: same Procedure Notes Procedure: 1. FLUOROSCOPICALLY GUIDED CONTRAST CONTROLLED INTERLAMINAR EPIDURAL STEROID INJECTION -L4/5 Indications: Agustina is referred by Dr. Tobin for treatment of Bilateral Foraminal Stenosis R>L LE symptoms. Physician: Sky Carney Total Fluoroscopy time (seconds): 6 Total sedation minutes: 11 Complications: none Procedure in detail & Post-procedure care: FINDINGS Multilevel Central Spinal Stenosis with Nerve Root Compression DESCRIPTION OF PROCEDURE Fluoroscopically guided, contrast-controlled L4/5 translaminar epidural steroid injection. Following review of allergy and review of potential side effects and complications, including, but not necessarily limited to, infection, allergic reaction, local tissue breakdown, temporary as well as permanent nerve injury, paralysis, stroke and possible , the patient indicated that the patient understood and agreed to proceed. An informed consent document was signed by the patient, witnessed by a nurse, and placed in the patient's chart. Additionally, other treatment options including modalities, medications, and physical therapy were reviewed with the patient. After review of previous anaesthesic history and IV conscious sedation the patient was deemed safe to proceed with today?s procedure with IV conscious sedation as ASA class II designation. Safety time-out was performed to confirm patient ID, procedure to be performed and site of procedure. IV sedation was accomplished with a combination of 2mg of Versed was administered by the RN after DO order, titrated to patient comfort during the course of the procedure while the patient remained responsive to all verbal commands In the prone position, following sterile prep and drape of the lumbar region, the L4/5 translaminar space was identified fluoroscopically. The skin was anesthetized via a 25-gauge, 1.5inch needle with 1% lidocaine solution. At this point, a 22-gauge short bevel spinal needle was atraumatically introduced and advanced under fluoroscopic guidance into the region of the L4/5 translaminar space. Depth was confirmed on lateral view. Radiological data, including multiple fluoroscopic views of the lumbar spine, reveal a spinal needle at the L4/5 translaminar space. Lateral views then show placement of the needle in the epidural space. Subsequent views show contrast material flowing superiorly and inferiorly in the epidural space. No vascular or intrathecal uptake is observed. At this point, using loss of resistance technique with saline and air, the epidural space was entered. This was confirmed following negative aspiration with injection of approximately 1.5cc of Isovue 200, showing excellent epidural flow without vascular or intrathecal uptake. At this point, 1cc of 1% lidocaine solution combined with 3cc or 20mg of dexamethasone and 6mg betamethasone was injected without incident. The patient tolerated the procedure well without signs or symptoms of complications prior to transfer to the recovery area continued monitoring without incident. The patient was then transferred to the recovery area where they were observed for an appropriate period of time after the injection. The patient reported a VAS score of 8 prior to the procedure and a post- procedure VAS of 2. POST OP INSTRUCTIONS The patient was provided a Pain Log to continue to record their response to the target-specific procedure prior to follow-up visit with their referring physician. Additionally, specific post-injection care instructions and a contact number to our office were provided if concerns arise regarding possible complications associated with the procedure are suspected.
== END 2022-06-02 16:41 | disposition home or self-care (01) ==
LOC: RAD 15:32
PROVIDERS: Family Provider Family Medicine; PCP Family Medicine; Referring Provider Physical Medicine & Rehabilitation; Visit Provider Physical Medicine & Rehabilitation
DX: M51.16 Intervertebral disc disorders with radiculopathy, lumbar region (principal); M48.061 Spinal stenosis, lumbar region without neurogenic claudication
CPT/HCPCS: 62323; 99152; J0702; J1100; J2250; J3490

== ENCOUNTER → 2022-06-17 10:02 | Outpatient (CLI) | payer OTHER, MEDICAID, SELFPAY ==
[2022-06-17 19:49] LABS: Alanine Aminotransferase 21 IU/L (<35); Albumin 4.2 g/dL (3.5-5.0); Albumin Globulin Ratio 1.8 (1.0-2.8); Alkaline Phosphatase 107 U/L (38-126); Aspartate Aminotransferase 20 IU/L (14-36); BUN Creatinine Ratio 14.7 (6-22); Bilirubin Total 0.7 mg/dL (0.2-1.3); Blood Urea Nitrogen 10 mg/dL (7-17); Carbon Dioxide 29 mmol/L (22-32); Chloride 102 mmol/L (98-107); Estimated Glomerular Filt Rate > 60 mL/min (>60); Globulin 2.3 g/dL (1.7-4.1); Glucose 105 mg/dL (70-100); HEMOLYSIS < 15 (0-50); Potassium 4.2 mmol/L (3.4-5.1); Sodium 140 mmol/L (137-145); Total Protein 6.5 g/dL (6.3-8.2)
== END ==
PROVIDERS: Family Provider Family Medicine; PCP Family Medicine; Visit Provider Psychiatry & Neurology Psychiatry
DX: F31.9 Bipolar disorder, unspecified (principal); Z79.899 Other long term (current) drug therapy
CPT/HCPCS: 80053; 80175

== ENCOUNTER → 2022-07-22 11:08 | Outpatient (CLI) | payer OTHER, MEDICAID, SELFPAY ==
--- NOTE | 2022-07-22 11:16 | DI.RAD.S_ITS ---
PROCEDURE: XR LUMBAR SPINE MIN 4V INDICATIONS: BACK PAIN TECHNIQUE: 5 views of the lumbar spine were acquired, including bilateral oblique views. COMPARISON: [facility] ([place]), CR, XR LUMBAR SPINE 2-3V, 07/22/2020, 15:00. FINDINGS: Bones: 5 nonrib-bearing vertebrae are present. There is multilevel trace retrolisthesis. Scattered minimal multilevel degenerative disc space narrowing as well as foraminal narrowing most severe at L4-5 and L5-S1. Overall appearance is stable. No vertebral body compression fractures. No suspicious bony lesions. Soft tissues: Overlying bowel gas pattern is normal. No suspicious soft tissue calcifications. Cholecystectomy clips are noted. Oblique images: No pars defects. IMPRESSION: Early degenerative changes stable most notably at L4-5 and L5-S1. Dictated by: Ghada Sandhu M.D. on 07/22/2022 at 20:53 Approved by: Ghada Sandhu M.D. on 07/22/2022 at 20:54
== END ==
PROVIDERS: Family Provider Family Medicine; PCP Family Medicine; Referring Provider Physical Medicine & Rehabilitation; Visit Provider Physical Medicine & Rehabilitation
DX: M47.816 Spondylosis without myelopathy or radiculopathy, lumbar region (principal); M47.817 Spondylosis without myelopathy or radiculopathy, lumbosacral region; M51.26 Other intervertebral disc displacement, lumbar region; G44.009 Cluster headache syndrome, unspecified, not intractable; F31.32 Bipolar disorder, current episode depressed, moderate
CPT/HCPCS: 72110; 99214

== ENCOUNTER 2022-08-20 12:42 | Outpatient (CLI) | payer OTHER, MEDICAID, SELFPAY ==
[2022-08-20] VITALS (8 sets, daily range): BP systolic 115–135; BP diastolic 72–82; PULSE 72–85; RESP 15–20; TEMP 36.4; O2SAT 95–100
--- NOTE | 2022-08-20 12:45 | DI.RAD.S_ITS ---
PROCEDURE: PAIN L/S TRANSFORAMINAL INJECT INDICATIONS: SPONDYLOSIS COMPARISON: [facility], CR, XR LUMBAR SPINE MIN 4V, 07/22/2022, 11:22. FINDINGS: Fluoroscopic spot filming was performed to verify placement of a spinal needle at the L4-L5 level, as labeled on the films. Appropriate location of the needle tip was confirmed by injection of iodinated contrast. IMPRESSION: Intraprocedural examination within normal limits. Dictated by: Marques Ramos M.D. on 08/20/2022 at 13:16 Approved by: Marques Ramos M.D. on 08/20/2022 at 13:16
[2022-08-20] MEDS: MIDAZOLAM 2 MG/2 ML VIAL IV (13:40)
[2022-08-20] MEDS: DEXAMETHASONE 10 MG/ML VIAL 20 MG INJ (13:45)
[2022-08-20] MEDS: BETAMETHASONE 30 MG/5 ML MDV 6 MG INJ (13:45)
[2022-08-20] MEDS: BUPIVACAINE 0.25% (PF) VIAL 2 ML INJ (13:45)
[2022-08-20] MEDS: IOPAMIDOL 15 ML VIAL 3 ML INJ (13:46)
--- NOTE | 2022-08-20 13:54 | P.PCN_ITS ---
Date/Time/Diagnoses Date of procedure: 08/20/22 Time of procedure: 13:54 Pre-procedure diagnosis: 1. FORAMINAL STENOSIS WITH LE SYMPTOMS Post-procedure diagnosis: same Procedure Notes Procedure: 1. FLUOROSCOPICALLY GUIDED CONTRAST CONTROLLED TRANSFORAMINAL EPIDURAL STEROID INJECTION - RIGHT L4/5 TFESI Indications: Agustina is referred by Dr. Tobin for treatment of Foraminal Stenosis with Right LE Symptoms Physician: Sky Carney Total Fluoroscopy time (seconds): 11 Total sedation minutes: 11 Complications: none Procedure in detail & Post-procedure care: FINDINGS Foraminal Nerve Root Compression secondary to disc disease and facet hypertrophy DESCRIPTION OF PROCEDURE Following review of allergy and review of potential side effects and complications, including, but not necessarily limited to, infection, allergic reaction, local tissue breakdown, stroke, temporary or permanent nerve injury, paralysis, and possible , the patient indicated that the patient understood and agreed to proceed. An informed consent document was signed by the patient, witnessed by a nurse, and placed in the patient's chart. Additionally, other treatment options including medications, modalities, and physical therapy were reviewed with the patient. After review of previous anaesthesic history and IV conscious sedation the patient was deemed safe to proceed with today?s procedure with IV conscious sedation as ASA class II designation. Safety time-out was performed to confirm patient ID, procedure to be performed and site of procedure. IV sedation was accomplished with a combination of 2mg of Versed was administered by the RN after DO order, titrated to patient comfort during the course of the procedure while the patient remained responsive to all verbal commands In the prone position following sterile prep and drape of the lumbar region, the right L4/5 posterior neuroforamen was identified fluoroscopically. The skin was anesthetized via a 25-gauge 1.5-inch needle with 1% lidocaine solution. At this point, a 25-gauge 3.5-inch spinal needle was atraumatically introduced and advanced under fluoroscopic guidance through the posterior right L4/5 neuroforamen to approximately the anterior aspect of the canal. Depth was confirmed on lateral view. Following negative aspiration, injection of approximately 1.5cc of Isovue 200 under live fluoroscopy in the AP view confirmed excellent flow along the nerve root, into the epidural space without vascular or intrathecal uptake observed Radiological data, including multiple fluoroscopic views of the lumbosacral s pine, reveal a spinal needle at the right L4/5 posterior neuroforamen. Subsequent views show flow of contrast material flowing superiorly and inferiorly along the nerve root confirming epidural flow. Subsequently, a test dose of 1.5 cc of 1% lidocaine solution was administered and patient was observed for two minutes for signs or symptoms of complications, including abdominal pain, shortness of breath, bilateral upper or lower extremity weakness, nausea and vomiting, prior to steroid injection. At this point, a total of 3cc or 20mg of dexamethasone and 6mg of betamethasone was injected without incident. The procedure tolerated the procedure well without signs or symptoms of complications prior to transfer to the recovery area continued monitoring without incident. The patient was then transferred to the recovery area where they were observed for an appropriate time after the injection. The patient reported a VAS score of 7 prior to the procedure and a post- procedure VAS of 0. POST OP INSTRUCTIONS The patient was provided a Pain Log to continue to record their response to the target-specific procedure prior to follow-up visit with their referring physician. Additionally, specific post-injection care instructions and a contact number to our office were provided if concerns arise regarding possible complications associated with the procedure are suspected.
== END 2022-08-20 14:24 | disposition home or self-care (01) ==
PROVIDERS: Family Provider Family Medicine; PCP Family Medicine; Referring Provider Physical Medicine & Rehabilitation; Visit Provider Physical Medicine & Rehabilitation
DX: M48.061 Spinal stenosis, lumbar region without neurogenic claudication (principal); M51.16 Intervertebral disc disorders with radiculopathy, lumbar region; M47.26 Other spondylosis with radiculopathy, lumbar region
CPT/HCPCS: 64483; 99152; J0702; J1100; J2250; J3490

== ENCOUNTER → 2022-08-21 15:28 | Outpatient (CLI) | payer OTHER, MEDICAID, SELFPAY | PROVIDERS: Family Provider Family Medicine; PCP Family Medicine; Visit Provider Physician Assistant Medical | DX: N39.0 Urinary tract infection, site not specified (principal) | CPT/HCPCS: 81002 ==

== ENCOUNTER → 2022-11-02 11:06 | Outpatient (CLI) | payer OTHER, MEDICAID, SELFPAY ==
--- NOTE | 2022-11-02 11:07 | DI.MG.S_ITS ---
BILATERAL DIGITAL SCREENING MAMMOGRAM 3D/2D WITH CAD: 11/02/2022 CLINICAL: Routine screening. Family history of breast cancer. Comparison is made to exams dated: 02/05/2021 mammogram, 11/04/2018 mammogram, and 09/07/2007 mammogram - [facility]. There are scattered areas of fibroglandular density in both breasts (category b / 25%-50% glandular tissue). Current study was also evaluated with a Computer Aided Detection (CAD) system. No significant masses, calcifications, or other findings are seen in either breast. There has been no significant interval change. IMPRESSION: NEGATIVE There is no mammographic evidence of malignancy. A 1 year screening mammogram is recommended. Based on the Tyrer Cuzick model (a risk assessment model) the patient's lifetime risk is 6.7% and her 10 year risk is 2.2%. According to the ACR, ACS, and NCCN guidelines, an annual breast MRI exam along with mammogram is recommended if the patient's lifetime risk is 20% or greater. This exam was interpreted at Station ID: [id number]. NOTE: For mammograms, a report in lay terms will be sent to the patient. Approximately 15% of breast malignancies will not be visualized mammographically. In the management of a palpable breast mass, a negative mammogram must not discourage biopsy of a clinically suspicious lesion. Electronically Signed By: Ashley [email or web address]/thai:11/02/2022 15:10:57 letter sent: Normal Exam ACR BI-RADS Category 1: Negative [id number]
== END ==
PROVIDERS: Family Provider Family Medicine; PCP Family Medicine; Referring Provider Family Medicine; Visit Provider Family Medicine
DX: Z12.31 Encounter for screening mammogram for malignant neoplasm of breast (principal); Z80.3 Family history of malignant neoplasm of breast
CPT/HCPCS: 77063; 77067

== ENCOUNTER 2022-11-02 11:48 | Emergency (ER) | payer OTHER, MEDICAID, SELFPAY ==
[2022-11-02 12:02] VITALS: BP 129/75; PULSE 96; RESP 16; TEMP 36.7; O2SAT 99; BMI 31.6
== END 2022-11-02 13:07 | disposition left against medical advice (07) ==
PROVIDERS: Emergency Provider Student in an Organized Health Care Education/Training Program; Family Provider Family Medicine; PCP Family Medicine
DX: G43.909 Migraine, unspecified, not intractable, without status migrainosus (principal)
CPT/HCPCS: 99281

== ENCOUNTER → 2022-11-24 09:26 | Outpatient (CLI) | payer MEDICARE, MEDICAID, SELFPAY ==
[2022-11-24 20:04] LABS: Lithium 0.3 mmol/L (0.6-1.2)
== END ==
PROVIDERS: Family Provider Family Medicine; PCP Family Medicine; Visit Provider Psychiatry & Neurology Psychiatry
DX: F31.9 Bipolar disorder, unspecified (principal); Z79.899 Other long term (current) drug therapy
CPT/HCPCS: 80178

== ENCOUNTER → 2022-12-31 09:54 | Outpatient (CLI) | payer MEDICARE, SELFPAY ==
[2022-12-31 19:20] LABS: Add Manual Diff / Slide Review NO; Basophils Absolute Auto 0 /uL (0-100); Basophils Percent Auto 0.2 % (0-2); Eosinophils Absolute Auto 300 /uL (0-450); Eosinophils Percent Auto 3.2 % (2-4); Hematocrit 45.6 % (36-46); Hemoglobin 15.3 g/dL (12.0-16.0); Lymphocytes Absolute Auto 3000 /uL (1100-4500); Lymphocytes Percent Auto 35.6 % (25-40); Mean Corpuscular HGB Conc 33.5 % (30-36); Mean Corpuscular Hemoglobin 31.9 PG (26-34); Mean Corpuscular Volume 95.2 fL (80-100); Monocytes Absolute Auto 400 /uL (0-900); Monocytes Percent Auto 4.5 % (3-14); Neutrophils Absolute Auto 4800 /uL (1500-7000); Neutrophils Percent Auto 56.5 % (50-75); Platelet Count 209 X10^3/uL (150-400); Red Blood Cell Count 4.79 X10^6/uL (4.0-5.2); Red Cell Distribution Width 13.6 % (11.6-14.8); White Blood Cell Count 8.5 X10^3/uL (4.5-11.0)
[2022-12-31 19:35] LABS: Alanine Aminotransferase 25 IU/L (<35); Albumin 4.7 g/dL (3.5-5.0); Alkaline Phosphatase 104 U/L (38-126); Aspartate Aminotransferase 27 IU/L (14-36); BUN Creatinine Ratio 13.8 (6-22); Bilirubin Total 0.7 mg/dL (0.2-1.3); Blood Urea Nitrogen 13 mg/dL (7-17); Carbon Dioxide 27 mmol/L (22-32); Chloride 99 mmol/L (98-107); Cholesterol 151 mg/dL (140-199); Estimated Glomerular Filt Rate > 60 mL/min (>60); Globulin 2.3 g/dL (1.7-4.1); Glucose 108 mg/dL (70-100); HDL Cholesterol 43 mg/dL (40-60); HEMOLYSIS 20 (0-50); LDL Cholesterol Calculated 62 mg/dL (<100); Potassium 3.9 mmol/L (3.4-5.1); Sodium 137 mmol/L (137-145); Triglycerides 231 mg/dL (35-150)
[2022-12-31 19:58] LABS: TSH w/ Reflex to FT4 9.21 uIU/mL (0.47-4.68)
[2022-12-31 20:48] LABS: Free T4, Direct Thyroxine 1.11 ng/dL (0.78-2.19)
== END ==
PROVIDERS: Psychiatry & Neurology Psychiatry; Family Provider Family Medicine; PCP Family Medicine; Visit Provider Family Medicine
DX: R73.03 Prediabetes (principal); N95.1 Menopausal and female climacteric states; F31.9 Bipolar disorder, unspecified; E78.5 Hyperlipidemia, unspecified; E87.6 Hypokalemia
CPT/HCPCS: 80053; 80061; 80178; 84439; 84443; 85025

== ENCOUNTER → 2023-01-05 11:35 | Outpatient (CLI) | payer MEDICARE, MEDICAID, SELFPAY ==
--- NOTE | 2023-01-05 | DI.MRI.S_ITS ---
PROCEDURE: MR LUMBAR SPINE WO CON INDICATIONS: STRAIN OF LUMBAR REGION/FACET ARTHROPATHY TECHNIQUE: Noncontrast sagittal T1 spin echo and T2 fast echo, sagittal STIR, and T2 fast spin echo through the lumbar spine. In cases with scoliosis, additional coronal T2 fast spin echo may be performed. COMPARISON: [facility], MR, MR LUMBAR SPINE WO CON, 08/27/2020, 11:18. FINDINGS: Image quality: Excellent. Alignment and Curvature: There is normal bony alignment. Bone Marrow: Marrow is of normal overall signal. No acute vertebral body compression fractures. Spinal Cord: Conus medullaris terminates at the L1 level. Visualized cord demonstrates normal signal and size. Paraspinous Soft Tissues: No paravertebral masses. L1-L2: No significant disc bulge. The foramina and central canal are patent. L2-L3: No significant disc bulge. The foramina and central canal are patent. L3-L4: Diffuse disc bulge which is eccentric to the right causes mild bilateral foraminal stenosis. The central canal has moderate stenosis. L4-L5: Diffuse disc bulge causes moderate bilateral foraminal stenosis. Mild facet hypertrophy. The central canal has mild stenosis. L5-S1: No significant disc bulge. Mild facet hypertrophy. Mild bilateral foraminal stenosis. The central canal is patent. IMPRESSION: 1. Multilevel lumbar spondylosis causing foraminal and central canal stenosis as detailed above. 2. No significant interval change compared to 08/27/2020. 3. The visualized spinal cord is normal. Dictated by: Derek Montilla M.D. on 01/05/2023 at 16:00 Approved by: Derek Montilla M.D. on 01/05/2023 at 16:08
== END ==
PROVIDERS: Family Provider Family Medicine; PCP Family Medicine; Referring Provider Physician Assistant Surgical; Visit Provider Physician Assistant Surgical
DX: S39.012A Strain of muscle, fascia and tendon of lower back, initial encounter (principal); M47.27 Other spondylosis with radiculopathy, lumbosacral region; M47.26 Other spondylosis with radiculopathy, lumbar region; M48.061 Spinal stenosis, lumbar region without neurogenic claudication; M48.07 Spinal stenosis, lumbosacral region
CPT/HCPCS: 72148

== ENCOUNTER → 2023-03-10 09:53 | Outpatient (CLI) | payer MEDICARE, MEDICAID, SELFPAY ==
[2023-03-10 19:26] LABS: Lithium 0.6 mmol/L (0.6-1.2)
[2023-03-10 19:28] LABS: Alanine Aminotransferase 34 IU/L (<35); Albumin Globulin Ratio 1.6 (1.0-2.8); Alkaline Phosphatase 110 U/L (38-126); Aspartate Aminotransferase 27 IU/L (14-36); BUN Creatinine Ratio 16.4 (6-22); Bilirubin Total 0.7 mg/dL (0.2-1.3); Blood Urea Nitrogen 12 mg/dL (7-17); Calcium 9.9 mg/dL (8.4-10.2); Carbon Dioxide 29 mmol/L (22-32); Chloride 102 mmol/L (98-107); Estimated Glomerular Filt Rate > 60 mL/min (>60); Globulin 2.5 g/dL (1.7-4.1); Glucose 77 mg/dL (70-100); HEMOLYSIS < 15 (0-50); Sodium 138 mmol/L (137-145); Total Protein 6.5 g/dL (6.3-8.2)
[2023-03-10 19:55] LABS: TSH w/ Reflex to FT4 3.83 uIU/mL (0.47-4.68)
== END ==
PROVIDERS: Family Provider Family Medicine; PCP Family Medicine; Visit Provider Psychiatry & Neurology Psychiatry
DX: F31.9 Bipolar disorder, unspecified (principal); Z79.899 Other long term (current) drug therapy
CPT/HCPCS: 80053; 80178; 84443

== ENCOUNTER 2023-06-29 15:32 | Outpatient (CLI) | payer MEDICARE, MEDICAID, SELFPAY ==
[2023-06-29] VITALS (9 sets, daily range): BP systolic 114–135; BP diastolic 65–78; PULSE 77–82; RESP 11–20; TEMP 36.4; O2SAT 96–100
--- NOTE | 2023-06-29 16:00 | DI.RAD.S_ITS ---
PROCEDURE: PAIN SI JOINT INJECTION GRACE INDICATIONS: SACRAL DYSFUNCTION COMPARISON: None. FINDINGS: Fluoroscopic spot filming was performed to verify placement of spinal needles at the bilateral SI joints level(s), as labeled on the films. Appropriate location(s) of the needle tip(s) was confirmed by injection of iodinated contrast. IMPRESSION: Intraoperative guidance provided. Dictated by: Flako Lake M.D. on 06/29/2023 at 22:11 Approved by: Flako Lake M.D. on 06/29/2023 at 22:11
[2023-06-29] MEDS: MIDAZOLAM 2 MG/2 ML VIAL IV (16:37)
[2023-06-29] MEDS: iopamidoL 15 ML VIAL 3 ML INJ (16:40)
[2023-06-29] MEDS: BETAMETHASONE 30 MG/5 ML MDV 12 MG INJ (16:41)
[2023-06-29] MEDS: BUPIVACAINE 0.5% (PF) 10 ML VIAL 2 ML INJ (16:41)
[2023-06-29] MEDS: LIDOCAINE 1% 20 ML 5 ML INJ (16:42)
--- NOTE | 2023-06-29 16:56 | PM.PROC.IR.1 ---
Date/Time/Diagnoses Date of procedure: 06/29/23 Time of procedure: 16:57 Pre-procedure diagnosis: Sacroiliac joint pain/DJD Post-procedure diagnosis: same Procedure Notes Procedure: Fluoroscopic guided contrast controlled bilateral sacroiliac joint injection Indications: Agustina is referred by Dr. Tobin for treatment of bilateral sacroiliac joint DJD Physician: Sky Carney Total Fluoroscopy time (seconds): 21 Total sedation minutes: 15 Complications: none Procedure in detail & Post-procedure care: Description of procedure Fluoroscopic guided, contrast controlled bilateral sacroiliac joint injection Following review of allergies and review of potential side effects and complications, including, but not necessarily limited to, infection, allergic reaction, local tissue breakdown, temporary as well as permanent nerve injury, paralysis, stroke and possible , the patient indicated that they understood and agreed to proceed. An informed consent was signed by the patient, witnessed by a nurse, and placed in the patient's chart. Additionally, other treatment options including modalities, medications, and physical therapy were reviewed with the patient. After review of previous anaesthesic history and IV conscious sedation the patient was deemed safe to proceed with today?s procedure with IV conscious sedation as ASA class II designation. Safety time-out was performed to confirm patient ID, procedure to be performed and site of procedure. IV sedation was accomplished with a combination of 2mg Versed were administered by the RN after DO order, titrated to patient comfort during the course of the procedure while the patient remained responsive to all verbal commands In the prone position following sterile prep and drape of the pelvic region, the hyper lucency on in the inferior aspect of the sacroiliac joint was identified fluoroscopically the skin was anesthetized be a 25 gauge 1.5 inch needle with approximately 2cc of 1% lidocaine solution. At this point, a 22 gauge 3 in spinal needle was atraumatically introduced and advanced under fluoroscopic guidance into the inferior aspect of the right sacroiliac joint. Following negative aspiration, approximately 0.3cc of Isovue-300 was injected confirming intra-articular placement without vascular uptake. Radiographic data, including multiple fluoroscopic views of the pelvis, reveals a spinal needle in the sacroiliac joint hyper lucent zone. Subsequent view show flow contrast tear superiorly and inferiorly within the joint capsule without vascular intrathecal uptake. At this point a total of 1cc of 0.5% Marcaine was combined with 1cc of 6mg of betamethasone was injected without incident. Attention was then refocused the left sacroiliac joint where the procedure was replicated. The procedure tolerated the procedure well without signs or symptoms of complications prior to transfer to the recovery area continued monitoring without incident. The patient was then transferred to the recovery area with a bur observed for an appropriate time after the injection. The patient reverted a vas score of 7 prior to the procedure and post-procedure vas of 1. Postop instructions The patient was provided with a pain like to continue to record the patient's response to the target specific procedure prior to the patient's follow-up visit with the referring physician. Additionally, specific post injection care instructions and a contact number to our office were provided if concerns arise regarding the possible complications associated with procedure are suspected.
== END 2023-06-29 17:11 | disposition home or self-care (01) ==
LOC: RAD 15:32
PROVIDERS: Family Provider Family Medicine; PCP Family Medicine; Referring Provider Physical Medicine & Rehabilitation; Visit Provider Physical Medicine & Rehabilitation
DX: M53.3 Sacrococcygeal disorders, not elsewhere classified (principal); M46.1 Sacroiliitis, not elsewhere classified
CPT/HCPCS: 27096; 99152; J0702; J2250

== ENCOUNTER → 2023-10-13 10:51 | Outpatient (CLI) | payer MEDICARE, MEDICAID, SELFPAY ==
[2023-10-13 22:18] LABS: Add Manual Diff / Slide Review NO; Basophils Absolute Auto 0 /uL (0-100); Basophils Percent Auto 0.4 % (0-2); Eosinophils Absolute Auto 100 /uL (0-450); Eosinophils Percent Auto 0.6 % (2-4); Hematocrit 47.7 % (36-46); Hemoglobin 15.8 g/dL (12.0-16.0); Lymphocytes Absolute Auto 3200 /uL (1100-4500); Mean Corpuscular HGB Conc 33.2 % (30-36); Mean Corpuscular Hemoglobin 31.5 PG (26-34); Monocytes Absolute Auto 400 /uL (0-900); Monocytes Percent Auto 4.1 % (3-14); Neutrophils Absolute Auto 7000 /uL (1500-7000); Neutrophils Percent Auto 64.9 % (50-75); Platelet Count 245 X10^3/uL (150-400); Red Blood Cell Count 5.02 X10^6/uL (4.0-5.2); Red Cell Distribution Width 13.3 % (11.6-14.8); White Blood Cell Count 10.8 X10^3/uL (4.5-11.0)
[2023-10-13 22:26] LABS: Alanine Aminotransferase 22 IU/L (<35); Albumin 4.4 g/dL (3.5-5.0); Albumin Globulin Ratio 1.6 (1.0-2.8); Alkaline Phosphatase 124 U/L (38-126); Aspartate Aminotransferase 77 IU/L (14-36); BUN Creatinine Ratio 16.9 (6-22); Bilirubin Total 0.7 mg/dL (0.2-1.3); Blood Urea Nitrogen 12 mg/dL (7-17); Calcium 9.3 mg/dL (8.4-10.2); Carbon Dioxide 27 mmol/L (22-32); Chloride 106 mmol/L (98-107); Cholesterol 173 mg/dL (140-199); Estimated Glomerular Filt Rate > 60 mL/min (>60); Globulin 2.8 g/dL (1.7-4.1); Glucose 113 mg/dL (70-100); HDL Cholesterol 57 mg/dL (40-60); HEMOLYSIS 31 (0-50); LDL Cholesterol Calculated 93 mg/dL (<100); Potassium 3.8 mmol/L (3.4-5.1); Sodium 139 mmol/L (137-145); Total Protein 7.2 g/dL (6.3-8.2); Triglycerides 113 mg/dL (35-150)
[2023-10-13 22:33] LABS: Hemoglobin A1C% w Est Avg Glu 5.8 % (4.0-6.0)
[2023-10-13 22:42] LABS: Lithium < 0.2 mmol/L (0.6-1.2)
[2023-10-13 23:07] LABS: TSH w/ Reflex to FT4 2.42 uIU/mL (0.47-4.68)
== END ==
PROVIDERS: Family Provider Family Medicine; PCP Family Medicine; Visit Provider Family Medicine
DX: K21.9 Gastro-esophageal reflux disease without esophagitis (principal); F32.A Depression, unspecified; R73.03 Prediabetes; R60.0 Localized edema; K21.00 Gastro-esophageal reflux disease with esophagitis, without bleeding; F31.9 Bipolar disorder, unspecified; E78.5 Hyperlipidemia, unspecified; E87.6 Hypokalemia
CPT/HCPCS: 80053; 80061; 80178; 83036; 84443; 85025

== ENCOUNTER → 2023-10-18 11:11 | Outpatient (CLI) | payer MEDICARE, MEDICAID, SELFPAY ==
--- NOTE | 2023-10-18 12:30 | DI.MRI.S_ITS ---
PROCEDURE: MR BRAIN (IAC) WWO CON INDICATIONS: Asymmetric tinnitus and vertigo, right greater than left TECHNIQUE: Noncontrast sagittal T1 spin echo, axial FLAIR, axial gradient echo, axial diffusion and ADC through the brain. Axial thin-slice 3D CISS, coronal TruFISP, axial T1 spin echo with fat saturation through the internal auditory canals. After the administration of contrast, thin slice axial and coronal T1 spin echo with fat saturation through the internal auditory canals, and axial and coronal and sagittal T1 spin echo with fat saturation through the brain. COMPARISON: MR, BRAIN WITHOUT CONTRAST, 05/04/2014, 9:41. [facility], MR, MR BRAIN W&WO CON, 02/15/2016, 14:18. FINDINGS: Image quality: Excellent. Cerebellopontine angles: No cerebellopontine angle masses. Inner ear structures appear normally formed. No suspicious enhancement in the internal auditory canal or along the course of the 7th cranial nerve. CSF spaces: Ventricles are normal in size and shape. No extra-axial fluid collections. Basal cisterns are patent. Brain: No intracranial bleeds or mass effects. Rivera-white matter interface is intact. No abnormal intracranial enhancement. Diffusion weighted images demonstrate no acute ischemic insults. Brainstem appears normal. Normal intravascular flow voids are present. Skull and face: Calvarial marrow signal is normal. Orbits appear normal. Sinuses: Sinuses and mastoids are clear. IMPRESSION: No significant abnormality is seen. Specifically, no masses or abnormal enhancement are seen within the cerebellopontine angle cisterns or within the internal auditory canals. Dictated by: Marques Ramos M.D. on 10/18/2023 at 14:31 Approved by: Marques Ramos M.D. on 10/18/2023 at 14:33
== END ==
PROVIDERS: Family Provider Family Medicine; PCP Family Medicine; Referring Provider Family Medicine; Visit Provider Family Medicine
DX: R42 Dizziness and giddiness (principal); H93.19 Tinnitus, unspecified ear; H91.90 Unspecified hearing loss, unspecified ear
CPT/HCPCS: 70553; A9579

== ENCOUNTER → 2023-12-10 10:02 | Outpatient (CLI) | payer MEDICARE, MEDICAID, SELFPAY ==
[2023-12-13 18:09] LABS: Interpretation Negative (Negative)
== END ==
PROVIDERS: Family Provider Family Medicine; PCP Family Medicine; Visit Provider Family Medicine
DX: R11.2 Nausea with vomiting, unspecified (principal)
CPT/HCPCS: 83013

== ENCOUNTER → 2024-06-06 09:56 | Outpatient (CLI) | payer MEDICARE, MEDICAID, SELFPAY ==
[2024-06-06 18:51] LABS: Add Manual Diff / Slide Review NO; Basophils Absolute Auto 0 /uL (0-100); Basophils Percent Auto 0.4 % (0-2); Eosinophils Absolute Auto 100 /uL (0-450); Eosinophils Percent Auto 1.7 % (2-4); Hemoglobin 15.1 g/dL (12.0-16.0); Lymphocytes Absolute Auto 2300 /uL (1100-4500); Lymphocytes Percent Auto 36.4 % (25-40); Mean Corpuscular HGB Conc 33.5 % (30-36); Mean Corpuscular Volume 92.8 fL (80-100); Monocytes Absolute Auto 300 /uL (0-900); Neutrophils Absolute Auto 3600 /uL (1500-7000); Neutrophils Percent Auto 56.5 % (50-75); Platelet Count 195 X10^3/uL (150-400); Red Blood Cell Count 4.85 X10^6/uL (4.0-5.2); Red Cell Distribution Width 12.9 % (11.6-14.8); White Blood Cell Count 6.4 X10^3/uL (4.5-11.0)
[2024-06-06 19:01] LABS: Alanine Aminotransferase 24 IU/L (<35); Albumin 4.4 g/dL (3.5-5.0); Alkaline Phosphatase 94 U/L (38-126); Aspartate Aminotransferase 25 IU/L (14-36); BUN Creatinine Ratio 14.5 (6-22); Bilirubin Total 0.8 mg/dL (0.2-1.3); Blood Urea Nitrogen 11 mg/dL (7-17); Calcium 9.7 mg/dL (8.4-10.2); Carbon Dioxide 26 mmol/L (22-32); Chloride 106 mmol/L (98-107); Cholesterol 167 mg/dL (140-199); Estimated Glomerular Filt Rate > 60 mL/min (>60); Globulin 2.2 g/dL (1.7-4.1); Glucose 104 mg/dL (70-100); HDL Cholesterol 49 mg/dL (40-60); HEMOLYSIS 22 (0-50); LDL Cholesterol Calculated 92 mg/dL (<100); Potassium 4.3 mmol/L (3.4-5.1); Sodium 142 mmol/L (137-145); Total Protein 6.6 g/dL (6.3-8.2); Triglycerides 131 mg/dL (35-150)
[2024-06-06 19:23] LABS: HEMOLYSIS < 15 (0-50); Iron 93 ug/dL (37-170)
[2024-06-06 19:36] LABS: Percent Iron Saturation 26 % (15-50); Total Iron Binding Capacity 357 ug/dL (265-497); Transferrin 306 mg/dL (206-381)
[2024-06-06 19:54] LABS: TSH w/ Reflex to FT4 1.14 uIU/mL (0.47-4.68)
== END ==
PROVIDERS: Family Provider Family Medicine; PCP Family Medicine; Visit Provider Family Medicine
DX: F31.9 Bipolar disorder, unspecified (principal); R19.7 Diarrhea, unspecified; R53.83 Other fatigue; E78.5 Hyperlipidemia, unspecified; G47.419 Narcolepsy without cataplexy; G25.81 Restless legs syndrome
CPT/HCPCS: 80053; 80061; 83540; 83550; 84443; 85025

== ENCOUNTER → 2024-09-09 11:13 | Outpatient (CLI) | payer MEDICARE, MEDICAID, SELFPAY ==
--- NOTE | 2024-09-09 11:14 | DI.MG.S_ITS ---
MM screening mammo BI: 09/09/2024. BI-RADS: 1 CLINICAL: 59-year old female for bilateral screening mammogram. Tyrer-Cuzick lifetime risk of 5.8%. No personal or first-degree family history of breast cancer. PRIOR EXAMS 11/02/2022, 02/05/2021, 11/04/2018. MAMMOGRAPHY TECHNIQUE: 2D and 3D (tomosynthesis) digital mammographic views obtained, with additional images as needed for full coverage. Current study was also evaluated with a Computer Aided Detection (CAD) system. DENSITY B. There are scattered areas of fibroglandular density. MAMMOGRAPHY FINDINGS Bilateral: No suspicious mass, asymmetry, microcalcification, or other abnormality seen. IMPRESSION: * No evidence of malignancy. RECOMMENDATIONS Bilateral * Annual screening mammography. OVERALL ASSESSMENT CATEGORY BI-RADS-1: Negative. [employer] recommends annual screening mammography beginning at age 40 for women with average risk of breast cancer. ELECTRONICALLY SIGNED: Cristofer Sanchez M.D. on 09/11/2024 at 07:40:42 AM PT Interpreting Station ID: [id number]
== END ==
PROVIDERS: Family Provider Family Medicine; PCP Family Medicine; Referring Provider Family Medicine; Visit Provider Family Medicine
DX: Z12.31 Encounter for screening mammogram for malignant neoplasm of breast (principal)
CPT/HCPCS: 77063; 77067